=== PATIENT | male | born 1990 | race Caucasian/White ===

== ENCOUNTER 2024-10-12 21:25 | Emergency (ER) | payer BC ==
[2024-10-12] MEDS: Lidocaine 2% with EPINEPHrine 1:100,000 20 ML MDV INJECT ONE (22:05)
[2024-10-12] MEDS: Mupirocin Oint 22 GM Tube TOP ONE (22:13)
[2024-10-12] MEDS: Carvedilol 25 MG Tab PO ONE (22:30)
== END 2024-10-13 05:10 | disposition home or self-care (01) ==
LOC: LB.ED 21:25
DX: S09.90XA Unspecified injury of head, initial encounter (principal); S01.01XA Laceration without foreign body of scalp, initial encounter; I10 Essential (primary) hypertension; E66.9 Obesity, unspecified; Z79.899 Other long term (current) drug therapy; Z68.35 Body mass index [BMI] 35.0-35.9, adult; W01.198A Fall on same level from slipping, tripping and stumbling with subsequent striking against other object, initial encounter
CPT/HCPCS: 12001; 99282; A9270; 99283